=== PATIENT | female | born 1935 | race Caucasian/White ===

== ENCOUNTER 2024-01-14 12:06 | Emergency (ER) | payer MEDICAID ==
[~2024-01-14] VITALS: Ht 152.4 cm; Wt 62.0 kg
[2024-01-14 12:08] VITALS: TEMP 98.6; O2SAT 96
[2024-01-14] MEDS ORDERED: MECLIZINE 25MG TABLET PO ONE (12:30)
[2024-01-14] MEDS: SODIUM CHLORIDE 0.9% 1,000 ML IV ONE (12:30)
[2024-01-14 13:21] LABS: BASOPHILS % 1.2 % (0.0-2.0); EOSINOPHILS % 1.5 % (0.0-5.0); HEMATOCRIT. 39.9 % (36.0-48.0); HEMOGLOBIN. 13.4 g/dL (12.0-16.0); LYMPHOCYTES % 16.8 % (20.0-50.0); MEAN CORPUSCULAR HEMOGLOBIN 30.1 pg (28.0-32.0); MEAN CORPUSCULAR HGB CONC 33.6 g/dL (31.0-37.0); MEAN CORPUSCULAR VOLUME 89.6 fL (81.0-99.0); MEAN PLATELET VOLUME 7.5 fl (7.4-10.4); MONOCYTES % 7.4 % (2.0-8.0); NEUTROPHILS % 73.1 % (40.0-76.0); PLATELET 286 x1000/uL (130-400); RED BLOOD CELL COUNT 4.45 mill/uL (4.2-5.4); RED CELL DISTRIBUTION WIDTH 15.3 % (11.6-14.6); WHITE BLOOD COUNT 9.1 x1000/uL (4.5-11.0)
[2024-01-14 13:39] LABS: ALANINE AMINOTRANSFERASE 8 IU/L (10-49); ALBUMIN 4.6 g/dL (3.2-4.8); ASPARTATE AMINOTRANSFERASE 19 IU/L (<34); BILIRUBIN TOTAL 0.6 mg/dL (0.1-1.0); CALCIUM 9.4 mg/dL (8.7-10.4); CARBON DIOXIDE 25 mEq/L (21-32); CHLORIDE 107 mEq/L (98-107); GLUCOSE 101 mg/dL (70-105); PROTEIN TOTAL 7.9 g/dL (6.0-8.3); SODIUM 139 mEq/L (136-145); TROPONIN I HIGH SENSITIVITY 5 ng/L (3.0-34); UREA NITROGEN BLOOD 14 mg/dL (9-23)
[2024-01-14 15:29] VITALS: BP 127/68; PULSE 59; RESP 14
[2024-01-14] MEDS: MECLIZINE 12.5MG TABLET PO NR (15:33)
[2024-01-14] MEDS ORDERED: MECL-299 PO (15:34)
== END 2024-01-14 15:56 | disposition home or self-care (01) ==
LOC: ER 12:06
DX: R42 Dizziness and giddiness (principal); I10 Essential (primary) hypertension
CPT/HCPCS: 80053; 82962; 83880; 83735; 85025; 84484; 36415; 71045; 93005; 99285; J8597; J7030; Z7610 ×2